=== PATIENT | male | born 1980 | race Two or more races ===

== ENCOUNTER 2018-06-15 17:19 | Emergency (ER) | payer MEDICAID ==
[~2018-06-15] VITALS: Ht 182.9 cm; Wt 90.9 kg
[2018-06-15 17:30] VITALS: Ht 182.9 cm; Wt 90.9 kg
[2018-06-15 17:58] LABS: APPEARANCE CLEAR (CLEAR); BASOPHILS 0.4 % (0-2); BILIRUBIN NEGATIVE (NEGATIVE); COLOR YELLOW (YELLOW); EOSINOPHILS 1.5 % (0-7); GLUCOSE NEGATIVE (NEGATIVE); HEMATOCRIT 42.5 % (42.0-54.0); HEMOGLOBIN 14.1 g/dL (13.5-17.5); IMMATURE GRANULOCYTES 0.3 % (0-5); KETONE NEGATIVE (NEGATIVE); LYMPHOCYTES 23.7 % (15-50); MCH 29.9 pg (26.0-34.0); MCHC 33.2 g/dL (31.0-37.0); MCV 90.2 fL (80.0-100.0); MEAN PLATELET VOLUME 8.8 fL (7.4-10.4); MONOCYTES 7.1 % (2-11); NITRITE NEGATIVE (NEGATIVE); PLATELET COUNT 235 10x3/uL (130-400); PROTEIN NEGATIVE (NEGATIVE); RBC 4.71 10x6/uL (4.20-6.10); RDW 12.8 % (11.5-14.5); UROBILINOGEN NORMAL (NORMAL); WBC 7.6 10x3/uL (4.8-10.8)
[2018-06-15 18:11] LABS: UDS - AMPHET NEGATIVE QUAL (NEGATIVE); UDS - BARB NEGATIVE QUAL (NEGATIVE); UDS - BENZO NEGATIVE QUAL (NEGATIVE); UDS - COCAINE NEGATIVE QUAL (NEGATIVE); UDS - OPIATE NEGATIVE QUAL (NEGATIVE); UDS - PCP NEGATIVE QUAL (NEGATIVE); UDS - THC NEGATIVE QUAL (NEGATIVE)
[2018-06-15 18:15] LABS: ALBUMIN 3.6 g/dL (3.4-5.0); ALKALINE PHOSPHATASE 62 U/L (46-116); ALT (SGPT) 24 U/L (10-68); BILIRUBIN - TOTAL 0.06 mg/dL (0.2-1.3); CALC OSMOLALITY 279 mosm/kg (275-300); CALCIUM 8.3 mg/dL (8.5-10.1); CARBON DIOXIDE 31.4 mmol/L (21.0-32.0); CHLORIDE - SERUM 103 mmol/L (98-107); CREATININE - SERUM 0.8 mg/dL (0.6-1.3); GLUCOSE 92 mg/dL (74-106); MAGNESIUM - SERUM 1.8 mg/dL (1.8-2.4); PROTEIN - SERUM 7.2 g/dL (6.4-8.2); SODIUM 140 mmol/L (136-145); UREA NITROGEN 14 mg/dL (7-18); eGFR NON AFRICAN AMERICAN > 90 mL/min (90-120)
[2018-06-16 00:29] VITALS: BP 131/94
== END 2018-06-16 00:47 ==
LOC: D.ER 17:19
PROVIDERS: Emergency Medicine
DX: R45.851 Suicidal ideations (principal); F31.9 Bipolar disorder, unspecified; F20.9 Schizophrenia, unspecified